=== PATIENT | male | born 1960 | race African-American/Black ===

== ENCOUNTER → 2022-10-23 | Day surgery (SDC) | payer OTHER ==
[2022-10-22 09:44] VITALS: BMI 31.9
[~2022-10-23] MED LIST: Lidocaine 2% MPF 10 ML AMP (For Epidural Use) ONE; PROPOFOL 20 ML ONE; PROPOFOL 40 ML ONE
== END ==
LOC: CSHSDC 06:34
PROVIDERS: ATTEND Internal Medicine Gastroenterology
PROC: 0DBH8ZZ Excision of Cecum, Via Natural or Artificial Opening Endoscopic (ICD-10-PCS; principal; 2022-10-23)
DX: Z12.11 Encounter for screening for malignant neoplasm of colon (principal); D12.0 Benign neoplasm of cecum; I10 Essential (primary) hypertension; K21.9 Gastro-esophageal reflux disease without esophagitis; M19.90 Unspecified osteoarthritis, unspecified site; Z88.5 Allergy status to narcotic agent
CPT/HCPCS: 88305; J2704